=== PATIENT | female | born 1990 | race African-American/Black ===

== ENCOUNTER 2017-05-27 06:49 | Emergency (ER) | payer SELFPAY ==
[~2017-05-27] VITALS: Ht 167.6 cm; Wt 71.9 kg
[2017-05-27 06:56] VITALS: BP 126/64; PULSE 105; RESP 16; TEMP 98.3; O2SAT 98
[2017-05-27] MEDS ORDERED: diphenhydrAMINE HCL 50 MG/ML VIAL IV PUSH ONE (07:15)
[2017-05-27] MEDS ORDERED: PROCHLORPERAZINE INJ 10 MG/2 ML VIAL IV PUSH ONE (07:15)
[2017-05-27] MEDS ORDERED: SODIUM CHLOR 0.9% 1000 ML INJ 1,000 ML IV SCH ×2 (07:15)
[2017-05-27] MEDS ORDERED: PROM25TA10 PO (07:37)
--- NOTE | 2017-05-27 07:38 | PD ---
HPI Chief Complaint: GI Complaint Time Seen by Provider: 07:00 Travel History International Travel<30 days: No Contact w/Intl Traveler<30days: No Traveled to known affect area: No History of Present Illness HPI 26-year-old woman who presents to the emergency department complaining of "I'm very dehydrated". She's had nausea vomiting diarrhea ongoing for the past day or so, as well as some headache, some shortness of breath, and feeling poorly. She states her son was sent home from daycare with nausea vomiting diarrhea as well. So were several other kids. She has history of GERD, and rheumatoid arthritis which she had previously been on a long acting opiate, she is not on any antidepressants. No other complaints. History Past Medical History Narrative Medical GERD Rheumatoid arthritis Chronic nausea Tetanus Vaccination: Unknown Influenza Vaccination: No Social History Alcohol Use: Yes (rare) Tobacco Use: No Allergies-Medications (Allergen,Severity, Reaction): Coded Allergies: Sulfa (Verified Allergy, Severe, itching/nausea, 05/27/17) Tramadol (Verified Allergy, Severe, nausea, 05/27/17) Zofran (Verified Allergy, Severe, nausea, 05/27/17) Reported Meds & Prescriptions Reported Meds & Active Scripts Active No Active Prescriptions or Reported Medications Review of Systems Except as stated in HPI: all other systems reviewed are Neg Physical Exam Narrative GENERAL: Well-appearing 26-year-old woman, no acute distress. SKIN: Focused skin assessment warm/dry. HEAD: Atraumatic. Normocephalic. CARDIOVASCULAR: Regular rate and rhythm. No murmur appreciated. RESPIRATORY: No accessory muscle use. Clear to auscultation. Breath sounds equal bilaterally. GASTROINTESTINAL: Abdomen soft, non-tender, nondistended. Hepatic and splenic margins not palpable. MUSCULOSKELETAL: No obvious deformities. No edema. NEUROLOGICAL: Awake and alert. No obvious cranial nerve deficits. Motor grossly within normal limits. Normal speech. Data Data Last Documented VS Vital Signs Date Time Temp Pulse Resp B/P Pulse Ox O2 Delivery O2 Flow Rate FiO2 05/27/17 07:04 16 05/27/17 06:56 98.3 105 126/64 98 Orders Sodium Chlor 0.9% 1000 Ml Inj (Ns 1000 M (05/27/17 07:15) Sodium Chlor 0.9% 1000 Ml Inj (Ns 1000 M (05/27/17 07:15) Prochlorperazine Inj (Compazine Inj) (05/27/17 07:15) Diphenhydramine Inj (Benadryl Inj) (05/27/17 07:15) MDM Medical Decision Making Medical Screen Exam Complete: Yes Emergency Medical Condition: Yes Differential Diagnosis Gastroenteritis, food borne illness, gastritis, appendicitis, other Narrative Course Medical decision making the 26-year-old woman presents to the emergency department with nausea vomiting diarrhea. She also some headache and some shortness of breath symptoms she treats to being just exhausted from throwing up. She doesn't look particularly dehydrated. 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 We'll recommend Zofran, she has chronic nausea. She is allergic to Zofran. Will recommend Compazine here for headache and nausea, IV fluids, outpatient follow-up. Diagnosis Primary Impression: Gastroenteritis Additional Impression: Headache Departure Forms: Tests/Procedures, Work Release Enter return to work date: May 29, 2017 Additional Instructions: Use Phenergan if needed for nausea or vomiting. Drink plenty of fluids stay well-hydrated. Return to the emergency department for any worsening abdominal pain, high fevers , bloody diarrhea, or any other new or worsening symptoms. Med/Other Pt SpecificInfo: Prescription(s) given Scripts Promethazine (Phenergan)25 Mg [id number] Mg PO Q6H PRN (NAUSEA OR VOMITING) #12 TAB Ref 0 Prov:Reza Dunlap MD 05/27/17 Disposition: 01 DISCHARGE HOME Condition: Stable Reza Dunlap MD May 27, 2017 07:38
== END 2017-05-27 08:20 | disposition home or self-care (01) ==
LOC: PHED 06:49
DX: K52.9 Noninfective gastroenteritis and colitis, unspecified (principal); R51 Headache; R06.02 Shortness of breath; M06.9 Rheumatoid arthritis, unspecified; K21.9 Gastro-esophageal reflux disease without esophagitis
CPT/HCPCS: 96361; 96374; 96375; 99284; J0780; J1200; J7030